=== PATIENT | female | born 1980 | race Two or more races ===

== ENCOUNTER 2020-02-03 11:10 | Outpatient (CLI) | payer OTHER | END 2020-02-03 11:17 | disposition home or self-care (01) | LOC: RAD 11:10 | PROVIDERS: ATTEND Orthopaedic Surgery | DX: M77.32 Calcaneal spur, left foot (principal); M25.572 Pain in left ankle and joints of left foot ==

== ENCOUNTER 2020-06-19 12:02 | Inpatient (IN) | payer OTHER ==
[~2020-06-19] VITALS: Ht 160 cm; Wt 74.8 kg
[2020-06-19] MEDS ORDERED: ZOLOFT100 MG PO (12:24)
[2020-06-19] MEDS ORDERED: RESTORIL30 M1 PO (12:24)
[2020-06-19] MEDS ORDERED: PEPCID AC20 MG PO (12:25)
[2020-06-19] MEDS ORDERED: ULTRAM50 MG PO (12:25)
[2020-06-19] MEDS ORDERED: PROAIR HFA8.5 GM IH (12:25)
[2020-06-19] MEDS ORDERED: ESOMEPRAZOLE MA40 MG PO (12:25)
[2020-06-23] MEDS ORDERED: HYDROCORTISO453.6 G1 RECTAL (15:38)
[2020-06-23] MEDS ORDERED: LIDOCAINE15 G1 TOP (15:40)
[2020-06-23] MEDS ORDERED: ANUSOL-HC25 MG RECTAL (15:44)
== END 2020-06-23 19:08 | disposition home or self-care (01) | DRG 395 ==
LOC: ER 12:02 → MEDI 20:13 → SEC-K 20:13 → MEDI 06-20 17:11 → SEC-K 06-20 17:52 → MEDI 06-21 00:48 → SEC-K 06-21 01:02 → MEDJ 06-21 03:09 → SEC-K 06-21 05:52 → MEDI 06-21 09:27
PROVIDERS: ADMIT Internal Medicine; ATTEND Internal Medicine
PROC: BW21YZZ Computerized Tomography (CT Scan) of Abdomen and Pelvis using Other Contrast (ICD-10-PCS; 2020-06-19)
PROC: 0DJD8ZZ Inspection of Lower Intestinal Tract, Via Natural or Artificial Opening Endoscopic (ICD-10-PCS; principal; 2020-06-22)
DX: K64.8 Other hemorrhoids (principal); K52.89 Other specified noninfective gastroenteritis and colitis; K60.2 Anal fissure, unspecified; Z20.822 Contact with and (suspected) exposure to COVID-19

== ENCOUNTER 2021-02-01 08:20 | Day surgery (SDC) | payer OTHER ==
[~2021-02-01 08:20] MED LIST: ANUSOL-HC25 MG RECTAL; ESOMEPRAZOLE MA40 MG PO; HYDROCORTISO453.6 G1 RECTAL; LAMICTAL25 M1; LIDOCAINE15 G1 TOP; PEPCID AC20 MG PO; PROAIR HFA8.5 GM IH; RESTORIL30 M1 PO; ULTRAM50 MG PO; ZOLOFT100 MG PO
[2021-02-01] MEDS ORDERED: PERCOCET 5-3251 EACH PO (15:13)
[2021-02-01] MEDS ORDERED: DERMOPLAST PAIN78 GM TOP (15:14)
== END 2021-02-01 17:55 | disposition home or self-care (01) ==
LOC: CIR.AMB 08:20
PROVIDERS: ATTEND Surgery
DX: K64.4 Residual hemorrhoidal skin tags (principal); K60.1 Chronic anal fissure

== ENCOUNTER 2021-02-07 13:39 | Emergency (ER) | payer OTHER ==
[~2021-02-07] VITALS: Ht 160 cm; Wt 59.0 kg
[~2021-02-07 13:39] MED LIST changes: +DERMOPLAST PAIN78 GM TOP; +PERCOCET 5-3251 EACH PO
== END 2021-02-07 18:06 | disposition home or self-care (01) ==
LOC: ER 13:39
DX: R42 Dizziness and giddiness (principal); R53.1 Weakness; T39.1X5A Adverse effect of 4-Aminophenol derivatives, initial encounter